=== PATIENT | male | born 1985 | race Hispanic/Latino ===

== ENCOUNTER 2025-03-04 07:48 | Observation (INO) | payer SELFPAY ==
[2025-03-04] VITALS (16 sets, daily range): BP systolic 133–170; BP diastolic 71–93; PULSE 73–105; RESP 16–24; TEMP 36.4–36.7; O2SAT 94–99; BMI 41.4
--- NOTE | 2025-03-04 08:35 | DI.RAD.S_ITS ---
PROCEDURE: XR FOOT LT MIN 3V INDICATIONS: wound , swollen toe TECHNIQUE: 3 views of the foot were acquired. COMPARISON: None. FINDINGS AND IMPRESSION: Osteomyelitis of the 2nd ray distal tuft, with clear erosions by radiography. There is adjacent soft tissue swelling and soft tissue ulceration. Mild degenerative changes of the 1st MTP, midfoot, and hindfoot. Soft tissue swelling also seen elsewhere in the foot. Plantar calcaneal enthesopathy. Dictated by: Medardo Preston M.D. on 03/04/2025 at 9:05 Approved by: Medardo Preston M.D. on 03/04/2025 at 9:05
--- NOTE | 2025-03-04 08:42 | ED_ITS ---
HPI - Wound/Laceration General Chief Complaint: Wound/Laceration Stated Complaint: Staph Lt 2nd toe, pain from calf down Time Seen by Provider: 03/04/25 08:41 History of Present Illness HPI narrative: Patient is a 39-year-old male history of type 2 diabetes presenting today with left 2nd toe infection. He was seen evaluated in [place] July 04. I reviewed records chief look like early osteomyelitis he had an MRI they did do a vancomycin trough but he reports he was never on a PICC line. He says that he tripped and then it started swelling more. It is now draining he is having increasing pain no fevers or chills. It appears that he was given treatment options back in June but was treated medically with antibiotics. He is here working at the [employer]. Related Data Allergies Allergy/AdvReac Type Severity Reaction Status Date / Time No Known Drug Allergies Allergy Verified 03/04/25 08:39 Patient History Social History Smoking Status: Never smoker Exam Initial Vital Signs Initial Vital Signs: Vital Signs Blood Pressure 150/88 H 03/04/25 08:10 GENERAL: Alert well-appearing 39-year-old male and in no acute distress. HEENT: Head atraumatic,EOMI, pupils reactive, face symmetric, moist mucous membranes CARDIOVASCULAR: Regular rate and rhythm without murmurs, rubs or gallops. RESPIRATORY: Breath sounds equal bilaterally, no wheezes rales or rhonchi. EXTREMITIES: Normal range of motion, no clubbing or edema. Neurovascularly intact NEUROLOGICAL: Alert and oriented x4.Normal gait and speech. SKIN: Warm, dry, no laceration, no petechiae, no rashes or lesions. Left 2nd toe enlarged drainage erythematous no streaking Course Orders Ordered: ED Orders 03/04/25 08:25 CRP [C-Reactive Protein Quant] Stat Complete Blood Count AUTO DIFF Stat Comprehensive Metabolic Panel Stat ESR [Erythrocyte Sedimentation Rate] Stat Lactate (Lactic Acid) Stat Procalcitonin Stat 03/04/25 08:35 XR foot LT min 3V Stat 03/04/25 08:53 Wound Culture and Gram Stain Stat 03/04/25 10:28 MR foot LT wo/w con Stat Acetaminophen (Acetaminophen 325 Mg Tablet) 650 mg PO Q6H PRN PRN Reason: Fever/Mild Pain (1-3) Levofloxacin (Levaquin) 750 mg in 150 mls @ 100 mls/hr IV NOW ONE Stop: 03/04/25 15:28 Last Admin: 03/04/25 14:20 Dose: 100 mls/hr Documented By: MARCELINA Levofloxacin (Levaquin) 750 mg in 150 mls @ 100 mls/hr IV NOW ONE Stop: 03/05/25 10:29 Vancomycin HCl/Dextrose (Vancomycin) 2,000 mg in 400 mls @ 200 mls/hr IV Q12H [facility] Naloxone HCl (Naloxone 0.4 Mg/Ml Vial) 0.2 mg IV Q2MIN PRN PRN Reason: Opiate Reversal Vancomycin HCl (Vancomycin Per Pharmacy) 1 request MISC NOW PRN PRN Reason: mrsa Vancomycin HCl (Vancomycin Trough) 1 [place] [facility] [place] Stop: 03/05/25 21:31 Vancomycin HCl (Vancomycin Peak) 1 [place] [facility] [place] Stop: 03/06/25 01:01 Discontinued Medications Vancomycin HCl/Dextrose (Vancomycin) 2,000 mg in 400 mls @ 200 mls/hr IV Q12H [facility] Last Infusion: 03/04/25 12:57 Dose: Infused Documented By: Infusion: 03/04/25 11:22 Dose: 200 mls/hr Documented By: Infusion: 03/04/25 10:42 Dose: 0 mls/hr Documented By: Admin: 03/04/25 10:08 Dose: 200 mls/hr Documented By: EMILIA Ceftriaxone Sodium 2,000 mg/ (Sodium Chloride) 100 mls @ 200 mls/hr IV NOW ONE Stop: 03/04/25 09:10 Last Infusion: 03/04/25 10:05 Dose: Infused Documented By: Admin: 03/04/25 09:24 Dose: 200 mls/hr Documented By: EMILIA Sodium Chloride (Normal Saline 0.9%) 1,000 mls @ 1,000 mls/hr IV BOLUS ONE Stop: 03/04/25 11:16 Last Infusion: 03/04/25 12:58 Dose: Infused Documented By: Infusion: 03/04/25 11:22 Dose: 1,000 mls/hr Documented By: Infusion: 03/04/25 10:42 Dose: 0 mls/hr Documented By: Admin: 03/04/25 10:30 Dose: 1,000 mls/hr Documented By: EMILIA Metformin HCl (Metformin 500 Mg Tablet) 500 mg PO NOW ONE Stop: 03/04/25 10:17 Last Admin: 03/04/25 10:32 Dose: 500 mg Documented By: EMILIA Vital Signs Vital signs: Vital Signs - 8 hr 03/04/25 08:10 03/04/25 08:11 03/04/25 08:30 Temperature Pulse Rate 105 H 94 H Respiratory Rate 23 Blood Pressure 150/88 H Pulse Oximetry 96 94 Oxygen Delivery Method Room Air 03/04/25 08:30 03/04/25 08:39 03/04/25 09:00 Temperature 98.0 F Pulse Rate 94 H 91 H Respiratory Rate 16 18 Blood Pressure 133/71 160/88 H Pulse Oximetry 98 94 Oxygen Delivery Method Room Air 03/04/25 09:00 03/04/25 09:30 03/04/25 09:30 Temperature Pulse Rate 87 Respiratory Rate 24 Blood Pressure 149/79 H 145/77 H Pulse Oximetry 95 Oxygen Delivery Method 03/04/25 10:00 03/04/25 10:00 03/04/25 11:20 Temperature Pulse Rate 80 84 Respiratory Rate Blood Pressure 143/72 H Pulse Oximetry 94 97 Oxygen Delivery Method 03/04/25 11:23 03/04/25 11:23 03/04/25 11:30 Temperature Pulse Rate 87 77 Respiratory Rate Blood Pressure 170/85 H Pulse Oximetry 96 96 Oxygen Delivery Method 03/04/25 11:31 03/04/25 11:31 03/04/25 12:00 Temperature Pulse Rate 79 77 Respiratory Rate Blood Pressure 144/78 H Pulse Oximetry 96 95 Oxygen Delivery Method 03/04/25 12:00 03/04/25 12:30 03/04/25 12:30 Temperature Pulse Rate 74 Respiratory Rate Blood Pressure 147/84 H 148/76 H Pulse Oximetry 96 Oxygen Delivery Method 03/04/25 13:00 03/04/25 13:00 Temperature Pulse Rate 78 Respiratory Rate 16 Blood Pressure 145/85 H Pulse Oximetry 98 Oxygen Delivery Method MDM - Wound/Laceration Lab Data 03/04/25 08:25 03/04/25 08:25 Labs: Lab Results 03/04/25 03/04/25 Range/Units 08:25 10:15 WBC 11.0 (4.5-11.0) X10^3/uL RBC 4.91 (4.5-5.9) X10^6/uL Hgb 14.3 (13.5-17.5) g/dL Hct 41.5 (41-53) % MCV 84.6 (80-100) fL MCH 29.1 (26-34) PG MCHC 34.4 (30-36) % RDW 12.7 (11.6-14.8) % Plt Count 252 (150-400) X10^3/uL Neut % (Auto) 65.9 (50-75) % Lymph % (Auto) 22.2 L (25-40) % [place] % (Auto) 8.6 (3-14) % Eos % (Auto) 2.3 (2-4) % Baso % (Auto) 1.0 (0-2) % Neut # (Auto) 7300 H (1638-0861) /uL Lymph # (Auto) 2400 (9685-4014) /uL [place] # (Auto) 900 (0-900) /uL Eos # (Auto) 300 (0-450) /uL Baso # (Auto) 100 (0-100) /uL ESR 52 H (0-15) MM/HR Sodium 132 L (137-145) mmol/L Potassium 3.8 (3.4-5.1) mmol/L Chloride 97 L (98-107) mmol/L Carbon Dioxide 27 (22-32) mmol/L BUN 17 (9-20) mg/dL Creatinine 0.85 (0.66-1.25) mg/dL Estimated GFR > 60 (>60) mL/min BUN/Creatinine Ratio 20.0 (6-22) Glucose 354 H (70-99) mg/dL POC Whole Bld Glucose 327 H (70-99) mg/dL Hemoglobin A1c 12.6 H (4.0-6.0) % Lactate 0.8 (0.7-2.1) mmol/L Calcium 9.3 (8.4-10.2) mg/dL Total Bilirubin 0.8 (0.2-1.3) mg/dL AST 36 (17-59) IU/L ALT 33 (<50) IU/L Alkaline Phosphatase 104 (38-126) U/L C-Reactive Protein 4.2 H (<1.0) mg/dL Total Protein 7.8 (6.3-8.2) g/dL Albumin 4.2 (3.5-5.0) g/dL Globulin 3.6 (1.7-4.1) g/dL Albumin/Globulin Ratio 1.2 (1.0-2.8) Procalcitonin 3.06 H (<0.5) ng/mL Imaging Data MR foot: Radiologist's Impression: PROCEDURE: MR FOOT LT WO/W CON INDICATIONS: Osteomyelitis 2nd toe TECHNIQUE: Noncontrast coronal T1 spin echo and STIR, sagittal T1 spin echo with fat saturation and STIR, axial T1 spin echo and T2 fast spin echo with fat saturation. After the administration of contrast, axial/sagittal/coronal T1 spin echo with fat saturation through the forefoot . COMPARISON: None. FINDINGS: Soft tissue swelling and edema noted involving the 2nd toe with deep ulcer and sinus track extending from the distal toe to the distal phalanx. Marrow edema present in the distal phalanx consistent with osteomyelitis. The middle proximal phalanx is relatively preserved. Diffuse subcutaneous edema without evidence of organized abscess consistent with cellulitis. IMPRESSION: 2nd distal phalangeal osteomyelitis Approved by: Kamari Meyer M.D. on 03/04/2025 at 11:13 Extremity x-ray #1: Radiologist's Impression: PROCEDURE: XR FOOT LT MIN 3V INDICATIONS: wound , swollen toe TECHNIQUE: 3 views of the foot were acquired. COMPARISON: None. FINDINGS AND IMPRESSION: Osteomyelitis of the 2nd ray distal tuft, with clear erosions by radiography. There is adjacent soft tissue swelling and soft tissue ulceration. Mild degenerative changes of the 1st MTP, midfoot, and hindfoot. Soft tissue swelling also seen elsewhere in the foot. Plantar calcaneal enthesopathy. Dictated by: Medardo Preston M.D. on 03/04/2025 at 9:05 [facility] Narrative Medical decision making narrative: Patient 39-year-old male history of diabetes 2nd toe really osteomyelitis but now presenting today with increasing swelling and pain. No fever Blood work has been reviewed CBC shows a WBC of 11 no anemia CMP mild hyponatremia sodium 132, potassium 3.8 chloride 97 carbon dioxide 27 BUN 17, creatinine 0.8 glucose 354, no DKA Lactate 0.8 ESR 52 CRP 4.2 Procalcitonin 3.0 MRI of foot confirms osteomyelitis of the 2nd toe Patient is covered for Pseudomonas with Rocephin and levofloxacin along with vancomycin. Culture of toe is pending along with blood cultures. Dr. Cohn orthopedic updated on patient's symptoms test results in ED to see and evaluate patient. No need for emergent surgery today Dr. Zhang accepts patient Discharge Plan Departure Patient Disposition: Admitted As Inpatient Clinical Impression: Osteomyelitis of second toe of left foot, Diabetes Admit Date/Time: 03/04/25 13:10 Admit Provider: Familia Zhang V
[2025-03-04 08:44] LABS: Add Manual Diff / Slide Review NO; Hematocrit 41.5 % (41-53); Hemoglobin 14.3 g/dL (13.5-17.5); Lymphocytes Absolute Auto 2400 /uL (1100-4500); Mean Corpuscular HGB Conc 34.4 % (30-36); Mean Corpuscular Hemoglobin 29.1 PG (26-34); Mean Corpuscular Volume 84.6 fL (80-100); Platelet Count 252 X10^3/uL (150-400)
[2025-03-04 08:54] LABS: Alanine Aminotransferase 33 IU/L (<50); Albumin 4.2 g/dL (3.5-5.0); Albumin Globulin Ratio 1.2 (1.0-2.8); Alkaline Phosphatase 104 U/L (38-126); Blood Urea Nitrogen 17 mg/dL (9-20); Calcium 9.3 mg/dL (8.4-10.2); Carbon Dioxide 27 mmol/L (22-32); Chloride 97 mmol/L (98-107); Estimated Glomerular Filt Rate > 60 mL/min (>60); Globulin 3.6 g/dL (1.7-4.1); Glucose 354 mg/dL (70-99); HEMOLYSIS < 15 (0-50); Potassium 3.8 mmol/L (3.4-5.1); Sodium 132 mmol/L (137-145); Total Protein 7.8 g/dL (6.3-8.2)
[2025-03-04 09:15] LABS: Lactate (Lactic Acid) 0.8 mmol/L (0.7-2.1)
[2025-03-04] MEDS: cefTRIAXone 2,000 MG in SODIUM CHLORIDE 0.9% 100 ML 200 MG IV (09:24)
[2025-03-04 09:32] LABS: Procalcitonin 3.06 ng/mL (<0.5)
[2025-03-04] MEDS: VANCOMYCIN 2,000 MG/400 ML PIGGYBACK 200 MG IV ×2 (10:08→21:45)
--- NOTE | 2025-03-04 10:28 | DI.MRI.S_ITS ---
PROCEDURE: MR FOOT LT WO/W CON INDICATIONS: Osteomyelitis 2nd toe TECHNIQUE: Noncontrast coronal T1 spin echo and STIR, sagittal T1 spin echo with fat saturation and STIR, axial T1 spin echo and T2 fast spin echo with fat saturation. After the administration of contrast, axial/sagittal/coronal T1 spin echo with fat saturation through the forefoot . COMPARISON: None. FINDINGS: Soft tissue swelling and edema noted involving the 2nd toe with deep ulcer and sinus track extending from the distal toe to the distal phalanx. Marrow edema present in the distal phalanx consistent with osteomyelitis. The middle proximal phalanx is relatively preserved. Diffuse subcutaneous edema without evidence of organized abscess consistent with cellulitis. IMPRESSION: 2nd distal phalangeal osteomyelitis Approved by: Kamari Meyer M.D. on 03/04/2025 at 11:13
[2025-03-04] MEDS: SODIUM CHLORIDE 0.9% 1,000 ML 1000 ML IV (10:30)
--- NOTE | 2025-03-04 14:06 | P.HP_ITS ---
History of Present Illness History of Present Illness Date Patient Seen: 03/04/25 Time Patient Seen: 13:55 Chief complaint: Staph Lt 2nd toe, pain from calf down Narrative: 39-year-old diabetic man visiting the area from [place], working locally for the next week and a half, presented to the emergency department today with pain and swelling in the left 2nd toe. He had osteomyelitis of the left 2nd toe in June, with 07/04/2024 MRI showing changes of osteomyelitis and cultures from 07/03/2024 growing prevotella and group B Streptococcus. He was treated with IV vancomycin at that time. He was also treated with insulin need addition to metformin. He has continued on metformin 500 mg twice daily since then. His hemoglobin A1c on 07/03/2024 was 10.8%. He does not monitor blood sugars and has not had a physician since then. He is frequently traveling and relocating to different areas for work, but considers [facility] [place]. He states his June episode of osteomyelitis completely resolved. He twisted his ankle about 3 days ago and had increased pain and swelling in the toe, though admits that the toe has remained persistently swollen and enlarged since his June presentation. He also notes a history of hypertension though is not on therapy. [facility] Medical History Diabetic neuropathy Essential hypertension Type 2 diabetes mellitus with polyneuropathy Social History household members: spouse and children Smoking Status: Never smoker alcohol intake: former Meds Home Medications and Allergies Home Medications ?Medication ?Instructions ?Recorded ?Confirmed ?Type metformin 500 mg tablet 500 mg PO BID 03/04/2503/04 History Allergies Allergy/AdvReac Type Severity Reaction Status Date / Time No Known Drug Allergies Allergy Verified 03/04/25 08:39 Review of Systems Review of Systems ROS: Yes All systems reviewed with the patient and are negative except as otherwise documented Exam Vital Signs (past 8 hours): - 03/04/25 08:10 03/04/25 08:11 03/04/25 08:30 Temperature Pulse Rate 105 H 94 H Respiratory Rate 23 Blood Pressure 150/88 H Pulse Oximetry 96 94 Oxygen Delivery Method Room Air 03/04/25 08:30 03/04/25 08:39 03/04/25 09:00 Temperature 98.0 F Pulse Rate 94 H 91 H Respiratory Rate 16 18 Blood Pressure 133/71 160/88 H Pulse Oximetry 98 94 Oxygen Delivery Method Room Air 03/04/25 09:00 03/04/25 09:30 03/04/25 09:30 Temperature Pulse Rate 87 Respiratory Rate 24 Blood Pressure 149/79 H 145/77 H Pulse Oximetry 95 Oxygen Delivery Method 03/04/25 10:00 03/04/25 10:00 03/04/25 11:20 Temperature Pulse Rate 80 84 Respiratory Rate Blood Pressure 143/72 H Pulse Oximetry 94 97 Oxygen Delivery Method 03/04/25 11:23 03/04/25 11:23 03/04/25 11:30 Temperature Pulse Rate 87 77 Respiratory Rate Blood Pressure 170/85 H Pulse Oximetry 96 96 Oxygen Delivery Method 03/04/25 11:31 03/04/25 11:31 03/04/25 12:00 Temperature Pulse Rate 79 77 Respiratory Rate Blood Pressure 144/78 H Pulse Oximetry 96 95 Oxygen Delivery Method 03/04/25 12:00 03/04/25 12:30 03/04/25 12:30 Temperature Pulse Rate 74 Respiratory Rate Blood Pressure 147/84 H 148/76 H Pulse Oximetry 96 Oxygen Delivery Method 03/04/25 13:00 03/04/25 13:00 Temperature Pulse Rate 78 Respiratory Rate 16 Blood Pressure 145/85 H Pulse Oximetry 98 Oxygen Delivery Method Oxygen Delivery Method Room Air Narrative Exam Narrative: GENERAL: This is a well-nourished, well-developed patient, in no apparent distress. HEAD: Atraumatic. Normocephalic. No temporal or scalp tenderness. EYES: Pupils equal round and reactive. Extraocular motions intact. No scleral icterus. No injection or drainage. ENT: Mucous membranes pink and moist. NECK: Supple, nontender, no meningeal signs. CARDIOVASCULAR: Regular rate and rhythm without murmurs, gallops, or rubs. RESPIRATORY: Clear to auscultation. GASTROINTESTINAL: Abdomen soft, non-tender, nondistended. EXTREMITIES: No clubbing, cyanosis, or edema. NEUROLOGIC: Alert, oriented, speech fluent, full upper and lower motor strength, no focal deficits evident. Absent to minimal sensation to light touch to mid- foot on the left. DERMATOLOGIC: Left 2nd toe swollen 2-3 times normal size, with tenderness, discharge, purulence with foul odor, and streaking into proximal foot. VASCULAR: 2+ DP and PT pulses bilaterally. Objective Imaging *: Radiologist's impression: 1. Left foot x-ray 03/04/2025: Osteomyelitis of the 2nd ray distal tuft, with clear erosions by radiography. There is adjacent soft tissue swelling and soft tissue ulceration. Mild degenerative changes of the 1st MTP, midfoot, and hindfoot. Soft tissue swelling also seen elsewhere in the foot. Plantar calcaneal enthesopathy. 2. Left foot MRI 03/04/2025: 2nd distal phalangeal osteomyelitis Labs 03/04/25 08:25 03/04/25 08:25 Labs: Laboratory Results - last 24 hr 03/04/25 03/04/25 08:25 10:15 WBC 11.0 RBC 4.91 Hgb 14.3 Hct 41.5 MCV 84.6 MCH 29.1 MCHC 34.4 RDW 12.7 Plt Count 252 Neut % (Auto) 65.9 Lymph % (Auto) 22.2 L [place] % (Auto) 8.6 Eos % (Auto) 2.3 Baso % (Auto) 1.0 Neut # (Auto) 7300 H Lymph # (Auto) 2400 [place] # (Auto) 900 Eos # (Auto) 300 Baso # (Auto) 100 ESR 52 H Sodium 132 L Potassium 3.8 Chloride 97 L Carbon Dioxide 27 BUN 17 Creatinine 0.85 Estimated GFR > 60 BUN/Creatinine Ratio 20.0 Glucose 354 H POC Whole Bld Glucose 327 H Lactate 0.8 Calcium 9.3 Total Bilirubin 0.8 AST 36 ALT 33 Alkaline Phosphatase 104 C-Reactive Protein 4.2 H Total Protein 7.8 Albumin 4.2 Globulin 3.6 Albumin/Globulin Ratio 1.2 Procalcitonin 3.06 H Assessment & Plan Assessment & Plan narrative: 1. Left 2nd toe osteomyelitis, recurrent, previously culturing prevotella and group B strep in June,. 2. Diabetes mellitus, type 2, with poor control. Hemoglobin A1c 12.6%. 3. Diabetic peripheral neuropathy. 4. Hypertension. Plan: -IV Levaquin -IV vancomycin -follow cultures. Consider switching to single agent levofloxacin at discharge with close outpatient follow-up with his providers in [place] -increase metformin to 1000 mg twice daily -diabetic diet -sliding scale insulin coverage -monitor blood pressures -encouraged consideration of GLP 1 therapy upon return to [place] DVT prophylaxis: Low risk, sequential compression devices Code status: Full code Quality MIPS - Admit I confirm the patient?s Advance Care Plan is present, Code status is documented, Surrogate decision maker is in patient?s record [If Yes, STOP here]: Yes MIPS - Meds 'Current medications' to include all prescriptions, [id number] products, herbals, cannabis/cannabidiol products, and vitamin/mineral/dietary (nutritional) supplements. I have utilized all available resources to obtain, update, or review the patient?s current medications. [If Yes, STOP here]: Yes [employer] Document charge(s): No Charge Codes Initial inpatient/observation care: 99826
[2025-03-04 14:31] LABS: Hemoglobin A1C% w Est Avg Glu 12.6 % (4.0-6.0)
--- NOTE | 2025-03-04 15:38 | PC.NURSE ---
Pt arrived to floor approximately 1510 A/O IV antibiotics infusing as per orders into the [facility] Pt oriented to room & call system. Call light w/in reach, pt calls appropriately for needs. + Continue w/plan of care.
--- NOTE | 2025-03-04 15:46 | PM.CN.IH.1 ---
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 He is currently up here temporarily for work and is anticipating returning to [place] in a week to 2 weeks. He has been having increasing pain and now drainage from his left 2nd toe again associated with a foul odor. He presents to the emergency room and an MRI was obtained which is concerning for possible osteomyelitis. Orthopedic consult was requested to assist in clinical decision-making and management. He is not aware of his most recent hemoglobin A1c. Meds Home Medications and Allergies Home Medications ?Medication ?Instructions ?Recorded ?Confirmed ?Type metformin 500 mg tablet 500 mg PO BID 03/04/25 03/04/25 History Allergies Allergy/AdvReac Type Severity Reaction Status Date / Time No Known Drug Allergies Allergy Verified 03/04/25 08:39 Exam Vital Signs (past 8 hours): - 03/04/25 08:10 03/04/25 08:11 03/04/25 08:30 Temperature Pulse Rate 105 H 94 H Respiratory Rate 23 Blood Pressure 150/88 H Pulse Oximetry 96 94 Oxygen Delivery Method Room Air 03/04/25 08:30 03/04/25 08:39 03/04/25 09:00 Temperature 98.0 F Pulse Rate 94 H 91 H Respiratory Rate 16 18 Blood Pressure 133/71 160/88 H Pulse Oximetry 98 94 Oxygen Delivery Method Room Air 03/04/25 09:00 03/04/25 09:30 03/04/25 09:30 Temperature Pulse Rate 87 Respiratory Rate 24 Blood Pressure 149/79 H 145/77 H Pulse Oximetry 95 Oxygen Delivery Method 03/04/25 10:00 03/04/25 10:00 03/04/25 11:20 Temperature Pulse Rate 80 84 Respiratory Rate Blood Pressure 143/72 H Pulse Oximetry 94 97 Oxygen Delivery Method 03/04/25 11:23 03/04/25 11:23 03/04/25 11:30 Temperature Pulse Rate 87 77 Respiratory Rate Blood Pressure 170/85 H Pulse Oximetry 96 96 Oxygen Delivery Method 03/04/25 11:31 03/04/25 11:31 03/04/25 12:00 Temperature Pulse Rate 79 77 Respiratory Rate Blood Pressure 144/78 H Pulse Oximetry 96 95 Oxygen Delivery Method 03/04/25 12:00 03/04/25 12:30 03/04/25 12:30 Temperature Pulse Rate 74 Respiratory Rate Blood Pressure 147/84 H 148/76 H Pulse Oximetry 96 Oxygen Delivery Method 03/04/25 13:00 03/04/25 13:00 03/04/25 15:15 Temperature 97.6 F Pulse Rate 78 80 Respiratory Rate 16 20 Blood Pressure 145/85 H 149/93 H Pulse Oximetry 98 98 Oxygen Delivery Method Oxygen Delivery Method Room Air Narrative Exam Narrative: Left foot 2nd toe shows substantial soft tissue swelling and chronic changes including discoloration and drainage from the distal tip of the toe. Motion is limited. Sensation is diminished. Objective Imaging Left foot films: My impression: Three views of the left foot performed March 04, 2025 were personally assessed. There are no acute fractures, dislocations, or bony blastic lesions. There may be some destructive changes of the 2nd toe distal tip of the distal phalanx seen on the AP and oblique views. MRI left foot: My impression: MRI of the left foot performed March 04, 2025 is personally assessed. There does appear to be involvement of the distal phalanx of the 2nd toe with some bony changes and destruction developing. There is also thickening of the soft tissue envelope of the 2nd toe diffusely. I do not appreciate a formal abscess. There does appear to be a sinus tract from the tip of the toe to the distal tip. Adjacent toes do not appear to be involved. Labs 03/04/25 08:25 03/04/25 08:25 Labs: Laboratory Results - last 24 hr 03/04/25 03/04/25 08:25 10:15 WBC 11.0 RBC 4.91 Hgb 14.3 Hct 41.5 MCV 84.6 MCH 29.1 MCHC 34.4 RDW 12.7 Plt Count 252 Neut % (Auto) 65.9 Lymph % (Auto) 22.2 L [place] % (Auto) 8.6 Eos % (Auto) 2.3 Baso % (Auto) 1.0 Neut # (Auto) 7300 H Lymph # (Auto) 2400 [place] # (Auto) 900 Eos # (Auto) 300 Baso # (Auto) 100 ESR 52 H Sodium 132 L Potassium 3.8 Chloride 97 L Carbon Dioxide 27 BUN 17 Creatinine 0.85 Estimated GFR > 60 BUN/Creatinine Ratio 20.0 Glucose 354 H POC Whole Bld Glucose 327 H Hemoglobin A1c 12.6 H Lactate 0.8 Calcium 9.3 Total Bilirubin 0.8 AST 36 ALT 33 Alkaline Phosphatase 104 C-Reactive Protein 4.2 H Total Protein 7.8 Albumin 4.2 Globulin 3.6 Albumin/Globulin Ratio 1.2 Procalcitonin 3.06 H PFSH Social History household members: spouse and children Tobacco & Substance Use Smoking Status: Never smoker alcohol intake: former Assessment & Plan Assessment & Plan narrative: Patient has osteomyelitis of the left 2nd toe distal phalanx with some bony destruction developing along with a draining sinus tract. Given the fact that he is here transiently, definitive management his somewhat more difficult. I personally am not specialized and managing diabetic foot wounds and would be hesitant to recommend amputation at this time as there may still be opportunity to salvage at least portion of the toe. I think our best option is to start him on IV antibiotics for the osteomyelitis and treat him medically while arranging continued treatment and follow up for him when he returns to [place] in a couple of weeks. I would recommend that he be seen by a provider that is specializes in diabetic foot conditions to determine if the toe can be salvaged appropriately. Additionally, I emphasized the importance of him working with a provider on strict control over his diabetes to help prevent further complications related to that disease. Recommend local wound treatment for the toe at this time including dressing changes as needed. Time-Based Coding :: [TOTAL MINUTES] spent with patient and on the chart (including review of chart, obtaining history, exam, reviewing outside data, placing orders, documenting exam and treatment plan, and counseling patient) on [DATE]. PROFEE Charge Codes Inpatient or Observation consultation: 70922
[2025-03-04] MEDS: ACETAMINOPHEN 325 MG TABLET 650 MG PO (17:50)
[2025-03-04] MEDS: INSULIN LISPRO 100 UNIT/ML 3ML VIAL SUBCUT (21:43)
[2025-03-05 07:00] VITALS: BP 124/86; PULSE 78; RESP 20; TEMP 36.2; O2SAT 96
--- NOTE | 2025-03-05 08:53 | PM.PN.IH.1 ---
Subjective Subjective Date Patient Seen: 03/05/25 Time Patient Seen: 08:53 Interval history: Hospital day 2. For left 2nd toe osteomyelitis. Patient reports no significant events overnight and no clinical changes. Exam Vital Signs (past 8 hours): - 03/05/25 07:00 Temperature 97.2 F L Pulse Rate 78 Respiratory Rate 20 Blood Pressure 124/86 Pulse Oximetry 96 Oxygen Delivery Method Room Air Oxygen Flow Rate 0 Narrative Exam Narrative: Left lower extremity shows continued swelling and discoloration of the 2nd toe. There is less drainage today. Objective Labs 03/04/25 08:25 03/04/25 08:25 Labs: Laboratory Results - last 24 hr 03/04/25 03/04/25 03/04/25 08: 10:15 16:07 ESR 52 H Sodium 132 L Potassium 3.8 Chloride 97 L Carbon Dioxide 27 BUN 17 Creatinine 0.85 Estimated GFR > 60 BUN/Creatinine Ratio 20.0 Glucose 354 H POC Whole Bld Glucose 327 H 285 H Hemoglobin A1c 12.6 H Lactate 0.8 Calcium 9.3 Total Bilirubin 0.8 AST 36 ALT 33 Alkaline Phosphatase 104 C-Reactive Protein 4.2 H Total Protein 7.8 Albumin 4.2 Globulin 3.6 Albumin/Globulin Ratio 1.2 Procalcitonin 3.06 H 03/04/25 03/05/25 20:42 07:28 ESR Sodium Potassium Chloride Carbon Dioxide BUN Creatinine Estimated GFR BUN/Creatinine Ratio Glucose POC Whole Bld Glucose 273 H 332 H Hemoglobin A1c Lactate Calcium Total Bilirubin AST ALT Alkaline Phosphatase C-Reactive Protein Total Protein Albumin Globulin Albumin/Globulin Ratio Procalcitonin [facility] Medical History Diabetic neuropathy Essential hypertension Type 2 diabetes mellitus with polyneuropathy Social History household members: spouse and children Smoking Status: Never smoker alcohol intake: former Assessment & Plan Assessment & Plan narrative: Left 2nd toe osteomyelitis in the setting of poorly controlled diabetes. Recommend continued antibiotic treatment and coordination for continuing care when he returns back to [place]. Recommend that he work with a diabetic resource management specialist to determine if amputation is required or if the toe can be preserved. Additionally recommend that he work on controlling his diabetes to help prevent future complications. Continue antibiotic treatment for this time. We will continue to follow. Time-Based Coding :: [TOTAL MINUTES] spent with patient and on the chart (including review of chart, obtaining history, exam, reviewing outside data, placing orders, documenting exam and treatment plan, and counseling patient) on [DATE]. Quality VTE Deep Vein Thrombosis/Pulmonary Embolism Present on Admission: No IH PROFEE Product Development Specialist Document charge(s): Yes Charge Codes Subsequent inpatient/observation care: [id number]
[2025-03-05] MEDS: INSULIN GLARGINE 100 UNIT/ML 3ML PEN 15 UNIT SUBCUT (09:26)
[2025-03-05] MEDS: INSULIN LISPRO 100 UNIT/ML 3ML VIAL 8 UNIT SUBCUT ×2 (09:27→11:22)
[2025-03-05] MEDS: INSULIN LISPRO 100 UNIT/ML 3ML VIAL SUBCUT ×2 (09:29→11:22)
[2025-03-05] MEDS: VANCOMYCIN 2,000 MG/400 ML PIGGYBACK 200 MG IV (11:14)
--- NOTE | 2025-03-05 13:28 | PM.DS.IH.1 ---
History of Present Illness History of Present Illness Date Patient Seen: 03/05/25 Time Patient Seen: 08:06 Chief complaint: Staph Lt 2nd toe, pain from calf down Narrative: 39-year-old diabetic man visiting the area from [place], working locally for the next week and a half, presented to the emergency department today with pain and swelling in the left 2nd toe. He had osteomyelitis of the left 2nd toe in June, with 07/04/2024 MRI showing changes of osteomyelitis and cultures from 07/03/2024 growing prevotella and group B Streptococcus. He was treated with IV vancomycin at that time. He was also treated with insulin need addition to metformin. He has continued on metformin 500 mg twice daily since then. His hemoglobin A1c on 07/03/2024 was 10.8%. He does not monitor blood sugars and has not had a physician since then. He is frequently traveling and relocating to different areas for work, but considers [facility] his home base. He states his June episode of osteomyelitis completely resolved. He twisted his ankle about 3 days ago and had increased pain and swelling in the toe, though admits that the toe has remained persistently swollen and enlarged since his June presentation. He also notes a history of hypertension though is not on therapy. Discharge Providers Provider Date of admission: 03/04/25 13:10 Discharge Date: 03/05/25 Consults: 03/05/25 08:31 Consult to Dietitian, Adult Routine Comment: Reason For Exam: diabetes management, A1c 12.6% Discharge provider: Familia Zhang MD Summary Hospital Course Discharge Diagnosis: 1. 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 2. Diabetes mellitus, type 2, with poor control. Hemoglobin A1c 12.6%. 3. Diabetic peripheral neuropathy. 4. Hypertension. Hospital Course: Patient was admitted and placed on broad-spectrum IV antibiotics. Cultures were obtained and grew Gram-negative bacilli on initial culture, pending identification and sensitivity. He felt significantly better overnight with decreased tenderness and swelling in the toe. The patient has no insurance and plans to return to [place] shortly. He was interested in discharge and medical management until he can return home. High-dose oral fluoroquinolone therapy was felt adequate for treatment of foot osteomyelitis at this point in the setting of chronic infection lasting for at least the past several months. He was started on Lantus insulin 25 units nightly, metformin 1000 mg twice daily and transitioned to oral levofloxacin for maximal tissue levels until such time that he may return to his primary care provider for ongoing care. The patient acknowledged understanding, agreement and appreciation of this plan of care, and agreed to call back with any questions or concerns. Status at Discharge Cognitive/behavioral status at discharge: oriented Functional status at discharge: independent ambulation Overall status at discharge: patient is back to baseline Time Spent with Patient Time spent: Greater than 30 minutes Exam Vital Signs (past 8 hours): - 03/05/25 07:00 Temperature 97.2 F L Pulse Rate 78 Respiratory Rate 20 Blood Pressure 124/86 Pulse Oximetry 96 Oxygen Delivery Method Room Air Oxygen Flow Rate 0 Narrative Exam Narrative: GENERAL: This is a well-nourished, well-developed patient, in no apparent distress. EYES: Pupils equal round and reactive. Extraocular motions intact. No scleral icterus. No injection or drainage. ENT: Mucous membranes pink and moist. NECK: Supple, nontender, no meningeal signs. CARDIOVASCULAR: Regular rate and rhythm without murmurs, gallops, or rubs. RESPIRATORY: Clear to auscultation. GASTROINTESTINAL: Abdomen soft, non-tender, nondistended. EXTREMITIES: No clubbing, cyanosis, or edema. NEUROLOGIC: Alert, oriented, speech fluent, full upper and lower motor strength, no focal deficits evident. Absent to minimal sensation to light touch to mid-foot on the left. DERMATOLOGIC: Left 2nd toe swollen 2-3 times normal size, with tenderness, and resolved streaking into proximal foot. VASCULAR: 2+ DP and PT pulses bilaterally. Objective Imaging *: Radiologist's impression: 1. Left foot x-ray 03/04/2025: Osteomyelitis of the 2nd ray distal tuft, with clear erosions by radiography. There is adjacent soft tissue swelling and soft tissue ulceration. Mild degenerative changes of the 1st MTP, midfoot, and hindfoot. Soft tissue swelling also seen elsewhere in the foot. Plantar calcaneal enthesopathy. 2. Left foot MRI 03/04/2025: 2nd distal phalangeal osteomyelitis Labs 03/04/25 08:25 03/04/25 08:25 Labs: Laboratory Results - last 24 hr 03/04/25 03/04/25 03/04/25 08:25 16:07 20:42 POC Whole Bld Glucose 285 H 273 H Hemoglobin A1c 12.6 H 03/05/25 03/05/25 07:28 11:05 POC Whole Bld Glucose 332 H 229 H D Hemoglobin A1c [facility] Medical History Diabetic neuropathy Essential hypertension Type 2 diabetes mellitus with polyneuropathy Social History household members: spouse and children Smoking Status: Never smoker alcohol intake: former Discharge Plan Discharge Plan Patient Disposition: Home Provider Discharge Comment: Followup with primary care provider 1-2 weeks Discharge orders & Medications Prescriptions: New metformin 500 mg Tablet 1,000 mg PO 0800,1700 Qty: 60 0RF insulin glargine [Lantus Solostar U-100 Insulin] 100 unit/mL (3 mL) Insulin Pen 25 unit SUBCUT BEDTIME Qty: 15 0RF Rx Instructions: include injection supplies levofloxacin 750 mg tablet 750 mg PO DAILY Qty: 14 0RF (DME) Glucometer/test strips See Rx Instructions .Route .MEDSUPPLY Qty: 1 0RF Rx Instructions: Check blood sugar BID #100 strips Discontinued metformin 500 mg tablet 500 mg PO BID Diet/Activity/Treatments Diet: Carb-consistent/Diabetic Activity: check blood sugars twice daily; decrease insulin by 5 units if blood sugar under 100; increase insulin by 5 units if blood sugar over 200 Visit Report/Discharge Packet Stand Alone Forms: Patient Portal/API, Stroke Signs & Symptoms Quality VTE Deep Vein Thrombosis/Pulmonary Embolism Present on Admission: No MIPS - Admit I confirm the patient?s Advance Care Plan is present, Code status is documented, Surrogate decision maker is in patient?s record [If Yes, STOP here]: Yes MIPS - Meds 'Current medications' to include all prescriptions, [id number] products, herbals, cannabis/cannabidiol products, and vitamin/mineral/dietary (nutritional) supplements. I have utilized all available resources to obtain, update, or review the patient?s current medications. [If Yes, STOP here]: Yes MIPS - DC The patient has a history of heart transplant or Left Ventricular Assist Device (LVAD). If yes, STOP here.: No The patient has current or prior documentation of left ventricular ejection fraction (LVEF) less than or equal to 40%, or moderate or severely depressed left ventricular systolic function.: No A. The patient was prescribed or already taking an Angiotensin-Converting Enzyme (CARLOTTA) Inhibitor, or Angiotensin Receptor Denice (ARB).: No B. The patient was prescribed or already taking a beta-denice. [If Yes to Both A & B, STOP here]: No Patient not prescribed/taking CARLOTTA or ARB, no reason given.: No Patient not prescribed/taking beta-denice, no reason given.: No PROFEE Charge Codes Discharge inpatient/observation: [id number]
--- NOTE | 2025-03-05 14:16 | PC.NURSE ---
Patient is A&Ox4, VSS, afebrile on RA. He tolerates IV abx well this a.m. He denies pain to L foot. L foot wound ANDRES, mild drainage (yellow)odorous. Surgeon at bedside examining patient, as well as hospitalist. He is cleared for discharge today with oral antibiotics. Pharmacist at bedside educating patient about new insulin and medications. Patient verbalizes understanding of needing to get PCP to follow up with wound and management of diabetes. He is escorted by RN with all of his personal belongings to ED entrance for discharge for coworker/friend to pick him up for discharge at 1415 this afternoon
--- NOTE | 2025-03-05 14:40 | CM.DANOTE ---
DCP Discharge Home Patient is a 39 yo male who was admitted OBS Status on 03/04/25 for Toe Pain/Infection. Pt is Private Pay and given [facility] Application and not established with PCP. EMR was reviewed. Per , pt with hx of poorly controlled diabetes and osteo of the toe in Jun 2024 this year and treated with IV abx and now admitted for ongoing osteo of the toe. Per Ortho Consult, currently recommending pt f/u with Emergency Response Technician to determine conservative tx vs possible amputation. Not currently recommending surgical intervention. Patient's permanent address is near 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 Pt travels a lot for work and is ambulatory. Since pt is not a resident of [facility] than he cannot apply for medical insurance here for coverage. recommending discharge home today on PO meds and outpt f/u once he returns to [place] and figures out his insurance for coverage of treatment. Pt agreeable with d/c back to work today and flying back to [place] soon. RICARDO Hammer
== END 2025-03-05 14:10 | disposition home or self-care (01) ==
LOC: ED 12:31 → AC 14:42
PROVIDERS: Admitting Provider Internal Medicine; Emergency Provider Emergency Medicine; Referring Provider Emergency Medicine; Visit Provider Internal Medicine
DX: M86.172 Other acute osteomyelitis, left ankle and foot (principal); B96.89 Other specified bacterial agents as the cause of diseases classified elsewhere; E11.42 Type 2 diabetes mellitus with diabetic polyneuropathy; I10 Essential (primary) hypertension; X50.1XXA Overexertion from prolonged static or awkward postures, initial encounter; Z79.84 Long term (current) use of oral hypoglycemic drugs
CPT/HCPCS: 36415; 73630; 73720; 80053; 82962; 83036; 83605; 84145; 85025; 85651; 86140; 87070; 87077; 87147; 87186; 87205; 96365; 96366; 96367; 96372; 99284; G0378; A9579; J0696; J1815; J1956; J3375; J7030; J7050